=== PATIENT | male | born 1980 | race American Indian/Alaskan Native ===

== ENCOUNTER 2020-01-31 10:53 | Emergency (ER) | payer SELFPAY ==
[2020-01-31 11:41] VITALS: BP 152/91
--- NOTE | 2020-01-31 11:49 | XRay Report ---
CHEST 2 VIEWS INDICATION / CLINICAL INFORMATION: Cough and night sweats for one day. COMPARISON: None available. FINDINGS: SUPPORT DEVICES: None. HEART / MEDIASTINUM: No significant abnormality. LUNGS / PLEURA: No significant pulmonary or pleural abnormality. No pneumothorax. ADDITIONAL FINDINGS: No significant additional findings. IMPRESSION: 1. No acute abnormality of the chest. Signer Name: Marin Estrella MD Signed: 01/31/2020 11:45 AM Workstation Name: [id number]
--- NOTE | 2020-01-31 12:07 | Emergency Department Report ---
Chief Complaint: Upper Respiratory Infection Stated Complaint: SNEEZING/COUGHING/NIGHT SWEATS Time Seen by Provider: 01/31/20 11:51 - HPI History of Present Illness: Patient is a 39-year-old male who presents the emergency room with complaints of sneezing that began 2 days ago. He states he has multiple episodes of sneezing a day. He states that he very rarely ever has a cough. He states last night he noticed some sweating but not enough to have to change out of his clothes. He denies any fever, shortness of breath, nausea, vomiting, diarrhea, chest pain. Patient states that he was concerned about COVID 19. He has had no recent travel and no known sick contacts and no contact with a COVID positive patient. He denies any past medical history or allergies to medications. Vitals are normal on exam: Non toxic appearing, no acute distress atraumatic, normocephalic normal appearance of the eyes, PERRL, EOMI, no periorbital edema or ecchymosis moist mucus membranes, pale boggy turbinates with clear nasal drainage, no tonsillar hypertrophy or exudates regular heart rate and rhythm, no gallops, no rubs, no murmurs breath sounds are clear bilaterally, no w/r/r A&O x4, no focal neuro deficit skin is warm, dry, intact CXR no acute process Patient has signs of allergic rhinitis on exam Symptoms most likely related to allergies, discussed [id number] treatments with patient Patient does not have any high risk factors for COVID 19 No signs of pneumonia on x-ray, afebrile, normal oxygen saturation, no tachycardia Discussed strict return precautions in detail with patient Medical screening examination performed and there is no threat to life or limb at this time - Exam Vital Signs: Vital Signs 01/31/20 11:05 Temperature 98.4 F Pulse Rate 78 Respiratory 16 Rate Blood Pressure 152/91 [Right] O2 Sat by Pulse 98 Oximetry MSE screening note: Focused history and physical exam performed. ED Disposition for MSE Clinical Impression: Dry cough Allergic rhinitis Qualifiers: Allergic rhinitis trigger: unspecified Allergic rhinitis seasonality: unspecified Qualified Code(s): J30.9 - Allergic rhinitis, unspecified Allergies Qualifiers: Encounter type: initial encounter Qualified Code(s): T78.40XA - Allergy, unspecified, initial encounter Disposition: Z-07 MED SCREENING EXAM-LEFT Is pt being admited?: No Does the pt Need Aspirin: No Condition: Stable Instructions: Allergic Rhinitis (ED), Allergies (ED) Additional Instructions: Please increase your water intake. May take Zyrtec or Claritin [id number]. Please use Flonase nasal spray. If you need to cough or snee ze please do so in a napkin and throw it away and immediately wash your hands. Follow-up with a primary care doctor in the next 3 to 5 days. Return to the emergency room for any new or worsening symptoms including but not limited to difficulty breathing, fevers not controlled by Tylenol, chest pain, not able to tolerate by mouth intake, etc. Referrals: ROCCO CADE MD [Staff Physician] - 3-5 Days [facility] [Provider Group] - 3-5 Days [facility] [Outside] - 3-[address] [facility] [Outside] - 3-5 Days Time of Disposition: 12:05 Print Language: AMERICAN
== END 2020-01-31 12:15 | disposition left against medical advice (07) ==
LOC: ED 10:53
DX: J30.9 Allergic rhinitis, unspecified (principal); T78.40XA Allergy, unspecified, initial encounter
CPT/HCPCS: 71046; 99283